=== PATIENT | female | born 1965 | race Caucasian/White ===

== ENCOUNTER 2019-06-08 09:50 | Outpatient (CLI) | payer OTHER ==
--- NOTE | 2019-06-08 11:49 | BD ---
BONE DENSITOMETRY USING DEXA: Date: 06/08/19 HISTORY: Postmenopausal screening for osteoporosis. FINDINGS: Lumbar Spine: BMD (g/cm2) L1 0.714 T-Score: -2.5 Z-Score: -1.6 L2 0.847 T-Score: -1.6 Z-Score: -0.7 L3 0.939 T-Score: -1.3 Z-Score: -0.3 L4 0.831 T-Score: -2.1 Z-Score: -1.1 L1-L4 0.836 T-Score: -1.9 Z-Score: -0.9 Femoral Neck: 0.626 T-Score: -2.0 Z-Score: -1.0 Total Femur: 0.848 T-Score: -0.8 Z-Score: -0.2 The 10 year fracture risk for a major osteoporotic fracture is 6.9% and for a hip fracture is 0.8%. IMPRESSION: Osteopenia. POS: OFF
== END 2019-06-08 09:51 | disposition home or self-care (01) ==
LOC: BICMAMMO 09:50
PROVIDERS: ATTEND Advanced Practice Midwife
DX: Z13.820 Encounter for screening for osteoporosis (principal); M85.89 Other specified disorders of bone density and structure, multiple sites
CPT/HCPCS: 77080

== ENCOUNTER 2021-06-26 09:16 | Outpatient (CLI) | payer BC | END 2021-06-26 09:17 | disposition home or self-care (01) | LOC: BICMAMMO 09:16 | PROVIDERS: ATTEND Advanced Practice Midwife | DX: Z13.820 Encounter for screening for osteoporosis (principal); M81.0 Age-related osteoporosis without current pathological fracture; M85.851 Other specified disorders of bone density and structure, right thigh; M85.852 Other specified disorders of bone density and structure, left thigh | CPT/HCPCS: 77080 ==

== ENCOUNTER 2022-08-27 15:48 | Outpatient (CLI) | payer BC | END 2022-08-27 15:49 | disposition home or self-care (01) | LOC: BICRAD 15:48 | PROVIDERS: ATTEND Family Medicine | DX: M25.561 Pain in right knee (principal); M17.11 Unilateral primary osteoarthritis, right knee ==